=== PATIENT | female | born 1970 | race Native Hawaiian/Other Pacific Islander ===

== ENCOUNTER 2017-02-15 15:07 | Emergency (ER) | payer OTHER ==
[2017-02-15] MEDS ORDERED: VALIUM PO ONE (19:38)
[2017-02-15] MEDS ORDERED: MOTRIN PO ONE (19:39)
--- NOTE | 2017-02-15 19:40 | Emergency Department Report ---
ED Back Pain/Injury HPI - General Chief Complaint: Back Pain/Injury Stated Complaint: BACK PAIN Time Seen by Provider: 02/15/17 19:05 Source: patient Limitations: No Limitations - History of Present Illness MD Complaint: back pain -: This morning Place: work Severity: moderate Quality: burning, aching - Related Data Previous Rx's Medication Instructions Recorded Last Taken Type HYDROcodone/APAP 5-325 [[place] 1 each PO Q4-6H PRN #16 tablet 12/01/13 Unknown Rx 5-325 mg TAB] Promethazine [Phenergan] 25 mg PO Q6H PRN #12 tablet 12/01/13 Unknown Rx Ranitidine HCl [Ranitidine] 150 mg PO Q12H #30 tablet 12/01/13 Unknown Rx Acetaminophen/Codeine [Tylenol 1 tab PO Q6H PRN #5 tab 02/15/17 Unknown Rx /Codeine # 3 tab] Cyclobenzaprine [Flexeril] 10 mg PO TID PRN #12 tablet 02/15/17 Unknown Rx Ibuprofen [Motrin] 800 mg PO Q8HR PRN #30 tablet 02/15/17 Unknown Rx Allergies Allergy/AdvReac Type Severity Reaction Status Date / Time No Known Allergies Allergy Unverified 12/01/13 17:04 ED Review of Systems ROS: Stated complaint: BACK PAIN Other details as noted in HPI ED Past Medical Hx - Past Medical History Previous Medical History?: No - Surgical History Past Surgical History?: No - Social History Smoking Status: Never Smoker Substance Use Type: None - Medications Home Medications: Home Medications Medication Instructions Recorded Confirmed Last Taken Type HYDROcodone/APAP 5-325 [[place] 1 each PO Q4-6H PRN #16 tablet 12/01/13 Unknown Rx 5-325 mg TAB] Promethazine [Phenergan] 25 mg PO Q6H PRN #12 tablet 12/01/13 Unknown Rx Ranitidine HCl [Ranitidine] 150 mg PO Q12H #30 tablet 12/01/13 Unknown Rx Acetaminophen/Codeine [Tylenol 1 tab PO Q6H PRN #5 tab 02/15/17 Unknown Rx /Codeine # 3 tab] Cyclobenzaprine [Flexeril] 10 mg PO TID PRN #12 tablet 02/15/17 Unknown Rx Ibuprofen [Motrin] 800 mg PO Q8HR PRN #30 tablet 02/15/17 Unknown Rx ED Physical Exam - General Limitations: No Limitations ED Course Vital Signs 02/15/17 02/15/17 15:15 20:09 Temperature 98.4 F Pulse Rate 85 Respiratory 17 18 Rate Blood Pressure 151/103 O2 Sat by Pulse 99 Oximetry ED Medical Decision Making - Medical Decision Making a/P: muscle spasm 1- motrin and flexeril Critical care attestation.: If time is entered above; I have spent that time in minutes in the direct care of this critically ill patient, excluding procedure time. ED Disposition Clinical Impression: Muscle spasm Back pain Qualifiers: Back pain location: back pain in other location Chronicity: acute Qualified Code(s): M54.9 - Dorsalgia, unspecified Disposition: - TO HOME OR SELFCARE Is pt being admited?: No Does the pt Need Aspirin: No Condition: Stable Instructions: Muscle Spasm (ED), Back Pain (ED) Prescriptions: Acetaminophen/Codeine [Tylenol /Codeine # 3 tab] 1 tab PO Q6H PRN #5 tab PRN Reason: Pain Cyclobenzaprine [Flexeril] 10 mg PO TID PRN #12 tablet PRN Reason: Muscle Spasm Ibuprofen [Motrin] 800 mg PO Q8HR PRN #30 tablet PRN Reason: Pain Referrals: [facility] [Outside] - 3-5 Days [facility] [Outside] - 3-5 Days Forms: Accompanied Note, Work/School Release Form(ED) Time of Disposition: 20:49
[2017-02-16 05:30] VITALS: BP 146/94
== END 2017-02-15 20:59 | disposition home or self-care (01) ==
LOC: ED 15:07
DX: M62.830 Muscle spasm of back (principal); M54.89 Other dorsalgia
CPT/HCPCS: 99282